=== PATIENT | male | born 1970 | race Caucasian/White ===

== ENCOUNTER → 2017-11-14 | Outpatient (CLI) | payer OTHER ==
[~2017-11-14] MED LIST: DOCU-299 PO; MET10 PO; PER PO
--- NOTE | 2017-11-14 13:54 | RADIOLOGY IMAGING REPORT ---
FACILITY: [facility] - [place] PATIENT NAME: Darshan Flowers : 1970 MR: [id number] V: [id number] EXAM DATE: ORDERING PHYSICIAN: ALMA ROSA CASTELLANOS TECHNOLOGIST: [place] [facility] [place] Patient: Darshan Flowers : 1970 Visit/Account:[id number] Date of Sevice: 11/14/2017 Exam type: LUMBAR SPINE 4 VIEWS History: Ongoing low back pain, radiculopathy, symptoms x6 months Comparison: None. Findings: There are five nonrib-bearing lumbar-type vertebral bodies present. There is no evidence of acute fr actures. There is a 7 mm anterior listhesis of L4 with respect L5 and mild disc space narrowing at t his level. There are mild hypertrophic changes facet joints bilaterally at L4-5 and L5-S1. Also not ed is mild disc space narrowing and small anterior osteophytes at T11-12. IMPRESSION: 1. 7 mm anterior listhesis of L4 with respect L5 with mild disc space narrowing. Mild hypertrophic changes of the facet joints bilaterally at L4-5 and L5-S1 Mild disc space narrowing and slight osteophytes at T12-L1. if patient's symptoms persist MR may be helpful Report Dictated By: Karla Simons MD at 11/14/2017 1:47 PM Report E-Signed By: Karla Simons MD at 11/14/2017 1:50 PM WSN:[id number]
== END ==
LOC: RAD 12:26
PROVIDERS: ATTEND Chiropractor
DX: M25.78 Osteophyte, vertebrae (principal); M53.86 Other specified dorsopathies, lumbar region
CPT/HCPCS: 72120

== ENCOUNTER → 2017-11-22 | Outpatient (CLI) | payer OTHER ==
--- NOTE | 2017-11-22 09:06 | RADIOLOGY IMAGING REPORT ---
[place] [facility] [place]: Darshan Flowers : 1970 MR: [id number] V: [id number] EXAM DATE: ORDERING PHYSICIAN: DELONTE JARQUIN TECHNOLOGIST: Location: [facility] - [place] Patient: Darshan Flowers : 1970 Visit/Account:[id number] Date of Sevice: 11/22/2017 LUMBAR SPINE 2 OR 3 VIEW Provided history: Low back pain, intervertebral disc displacement. Additional pertinent history: none Views obtained: 4 views-neutral, extension, and to flexion lateral views. COMPARISON STUDIES: 11/14/17 FINDINGS: Reidentified is advanced disc space narrowing at L4-5 with 8 mm anterolisthesis and full ex tension, converting to 12 mm in full flexion. No pars defect is present. The facets are mildly hypertrophic and sclerotic. Disc height is well-pr eserved elsewhere in the lumbar spine. No other abnormal motion. IMPRESSION: The narrowed L4-5 this does demonstrate evidence of motion on flexion and extension. Report Dictated By: Deon Barber MD at 11/22/2017 8:57 AM Report E-Signed By: Deon Barber MD at 11/22/2017 9:02 AM WSN:[id number]
== END ==
LOC: RAD 08:11
PROVIDERS: ATTEND Neurological Surgery
DX: M51.26 Other intervertebral disc displacement, lumbar region (principal)
CPT/HCPCS: 72100

== ENCOUNTER → 2017-11-28 | Outpatient (CLI) | payer OTHER ==
--- NOTE | 2017-11-28 15:10 | RADIOLOGY IMAGING REPORT ---
FACILITY: [facility] - [place] PATIENT NAME: Darshan Flowers : 1970 MR: [id number] V: [id number] EXAM DATE: ORDERING PHYSICIAN: DELONTE JARQUIN TECHNOLOGIST: Location: [facility] - [place] Patient: Darshan Flowers : 1970 Visit/Account:[id number] Date of Sevice: 11/28/2017 EXAMINATION: L SPINE W/O CONTRAST INDICATION: Back pain COMPARISON: Radiographs November 22, 2017 TECHNIQUE: Multiplane MR imaging was performed through the lumbar spine without contrast. FINDINGS: Vertebral bodies: Normal Conus position/signal: Normal Marrow signal: Faint degenerative edema within the bilateral L5 pedicles. Extraspinal structures including psoas muscles/paraspinal soft tissues: Right renal cyst noted. L1-2: Normal L2-3: Normal. L3-4: Minimal posterior disc protrusion, otherwise normal. L4-5: Mild degenerative disc disease, 4 mm anterolisthesis of L4 on L5, moderate to severe facet arth ropathy, ligamentum flavum thickening, bilateral lateral recess narrowing and moderate thecal sac germaine rowing. Mild right foraminal narrowing, moderate to severe left foraminal narrowing. L5-S1: Normal IMPRESSION: 1. 4 mm anterolisthesis of L4 on L5 secondary to moderate to severe facet arthropathy. 2. Mild L4-5 degenerative disc disease. 3. Moderate L4-5 thecal sac narrowing and bilateral lateral recess narrowing secondary to the constel lation of findings described above. 4. Left greater than right L4-5 foraminal narrowing, see comments above. Report Dictated By: Asif Zuleta MD at 11/28/2017 3:01 PM Report E-Signed By: Asif Zuleta MD at 11/28/2017 3:07 PM WSN:[email or web address]
== END ==
LOC: MRI 06:54
PROVIDERS: ATTEND Neurological Surgery
DX: M51.26 Other intervertebral disc displacement, lumbar region (principal); M51.36 Other intervertebral disc degeneration, lumbar region; N28.1 Cyst of kidney, acquired
CPT/HCPCS: 72148

== ENCOUNTER → 2018-03-13 | Outpatient (CLI) | payer OTHER ==
--- NOTE | 2018-03-13 16:44 | RADIOLOGY IMAGING REPORT ---
FACILITY: [facility] - [place] PATIENT NAME: Darshan Flowers : 1970 MR: [id number] V: [id number] EXAM DATE: ORDERING PHYSICIAN: DELONTE JARQUIN TECHNOLOGIST: Location: [facility] - [place] Patient: Darshan Flowers : 1970 Visit/Account:[id number] Date of Sevice: 03/13/2018 LUMBAR SPINE 4 VIEWS Indication: Spondylolisthesis Comparison: Lumbar spine radiograph 11/22/2017 Findings: There are new postoperative changes with posterior instrumentation and fusion hardware L4 a nd L5. Interdisc spacers also seen. The vertebral bodies heights are maintained. Alignment is normal. Flexion and extension views demonst rate no significant malalignment. IMPRESSION: 1. Postoperative changes with posterior mentation fusion hardware at L4-5, new from the prior study. Alignment is maintained. Report Dictated By: Mayank Andujar at 03/13/2018 4:39 PM Report E-Signed By: Mayank Andujar at 03/13/2018 4:40 PM WSN:[id number]
== END ==
LOC: RAD 15:30
PROVIDERS: ATTEND Neurological Surgery
DX: Z96.698 Presence of other orthopedic joint implants (principal); Z98.890 Other specified postprocedural states
CPT/HCPCS: 72120

== ENCOUNTER → 2018-07-25 | Outpatient (CLI) | payer OTHER ==
[2018-07-25 07:15] LABS: PLATELET COUNT, AUTOMATED 221 K/uL (150-450)
[2018-07-25 08:00] LABS: LDL CHOLESTEROL 89 mg/dl
== END ==
LOC: LAB 07:00
PROVIDERS: ATTEND Internal Medicine
DX: Z00.00 Encounter for general adult medical examination without abnormal findings (principal)
CPT/HCPCS: 36415; 81001; 82040; 82247; 82310; 82374; 82435; 82465; 82565; 82947; 83718; 84075; 84132; 84153; 84155; 84295; 84443; 84450; 84460; 84478; 84520; 85025

== ENCOUNTER 2018-10-01 00:32 | Day surgery (SDC) | payer OTHER ==
[~2018-10-01] VITALS: Ht 172.7 cm; Wt 74.8 kg
[~2018-10-01 00:32] MED LIST changes: +LIDOCAINE/SOD BICARB 8.4% SYR ID ONE; +NORMOSOL R SOLN(*) 1000 ML BAG 1,000 ML IV PRN
[2018-10-01] MEDS ORDERED: LIDOCAINE MPF 1% 5 ML VIAL ONE (07:21)
[2018-10-01] MEDS ORDERED: PROPOFOL EMUL(*) 10MG/ML 20 ML 40 ML ONE (07:21)
[2018-10-01 07:46] VITALS: BP 112/79
[2018-10-01 08:43] VITALS: BP 93/62
--- NOTE | 2018-10-01 08:49 | Short(Outpt) Discharge Summary ---
Discharge Summary Reason for Hosp/Final Diag: (1) Screening for colon cancer Hospital Course & Plan: Colonoscopy completed without any problems, normal. Departure Discharge to: Home, Self Care Discharge Instructions Home Meds No Active Prescriptions or Reported Meds Diet: Regular Activity: As Tolerated Special Instructions: Your colonoscopy was completed without any problems and your prep was excellent (Good Job!!). There were no abnormalities, polyps, cancers, inflammation in your colon. I recommend that your next colonoscopy be in 10 years. JAMI LOVING MD Oct 01, 2018 08:49
[2018-10-01 09:00] VITALS: BP 104/64
[2018-10-01 09:25] VITALS: BP 121/78
[2018-10-01 09:28] VITALS: BP 124/83
[2018-10-01] MEDS ORDERED: NORMOSOL R SOLN(*) 1000 ML BAG 1,000 ML IV PRN (09:35)
[2018-10-01] MEDS ORDERED: LIDOCAINE/SOD BICARB 8.4% SYR ID ONE (09:35)
[2018-10-01] MEDS ORDERED: INFLUENZA VIRUS VAC 0.5ML SYR IM ONLY ONE (09:40)
== END 2018-10-01 09:55 | disposition home or self-care (01) ==
LOC: OR 00:32
PROVIDERS: ATTEND Surgery
DX: Z12.11 Encounter for screening for malignant neoplasm of colon (principal)
CPT/HCPCS: 00812; 45378; 90674; J2001; J2704